=== PATIENT | female | born 1995 | race American Indian/Alaskan Native ===

== ENCOUNTER 2019-05-15 22:11 | Emergency (ER) | payer SELFPAY ==
--- NOTE | 2019-05-15 22:51 | Event Note ---
ED Screening Note Date of service: 05/15/19 Time: 22:48 ED Screening Note: 23 y/o femal LMP 03/04/19. Having vag spotting and pelvic cramping. This initial assessment/diagnostic orders/clinical plan/treatment(s) is/are subject to change based on patients health status, clinical progression and re- assessment by fellow clinical providers in the ED. Further treatment and workup at subsequent clinical providers discretion. Patient/guardian urged not to elope from the ED as their condition may be serious if not clinically assessed and managed. Initial orders include:
[2019-05-15 23:39] LABS: Bacteria,Urine 1+ /HPF (Negative); Bilirubin,Urine NEG (Negative); Blood,Urine MOD (Negative); Color,Urine Straw (Yellow); Protein,Urine <15 mg/dL mg/dL (Negative); Urobilinogen,Urine < 2.0 mg/dL (<2.0)
[2019-05-16 00:02] LABS: Hematocrit 30.9 % (30.3-42.9); Hemoglobin 9.9 gm/dl (10.1-14.3); Mean Corpuscular HGB Conc 32 % (30-34); Mean Corpuscular Volume 77 fl (79-97); Platelet Count 272 K/mm3 (140-440); Red Blood Count 3.99 M/mm3 (3.65-5.03)
[2019-05-16 00:04] LABS: Mean Corpuscular Hemoglobin 25 pg (28-32); Red Cell Distribution Width 23.4 % (13.2-15.2)
--- NOTE | 2019-05-16 01:27 | Ultrasound Report ---
ULTRASOUND OBSTETRIC INDICATION: Abdominal pain with vaginal spotting. Clinical gestational age of 10 weeks, 3 days. TECHNIQUE: Transvaginal. COMPARISON: None available. FINDINGS: GESTATIONAL SAC: Well-defined oval shape and intrauterine in location. YOLK SAC: No significant abnormality. EMBRYO/FETUS: No cardiac activity is detected. - [place]-Rump Length = 0.23 cm = 9 weeks, 0 day(s). ADNEXA: No significant abnormality. FREE FLUID: None. ADDITIONAL FINDINGS: None. IMPRESSION: Single intrauterine with an estimated age of 9 weeks without detectable cardiac activity. Signer Name: Edmundo Tsai MD Signed: 05/16/2019 1:22 AM Workstation Name: [employer]
--- NOTE | 2019-05-16 01:32 | Ultrasound Report ---
Please see the report for accession number [id number] SRM, transvaginal OB ultrasound performed concomit antly. Signer Name: Edmundo Tsai MD Signed: 05/16/2019 1:27 AM Workstation Name: [facility]
--- NOTE | 2019-05-16 03:54 | Emergency Department Report ---
ED Female HPI - General Chief complaint: Urogenital-Female Stated complaint: ABD CRAMPS/BACK PAIN/SPOTTING/PREG Time Seen by Provider: 05/16/19 02:38 Source: patient Mode of arrival: Ambulatory Limitations: No Limitations - History of Present Illness MD Complaint: vaginal bleeding Radiation: non-radiating Severity: mild Quality: cramping Consistency: intermittent Improves with: none Worsens with: none Are you Now?: Yes Associated Symptoms: vaginal bleeding (noticed some spotting). denies: abdominal pain, nausea/vomiting, loss of appetite, dysuria, hematuria - Related Data Sexually active: No Allergies Allergy/AdvReac Type Severity Reaction Status Date / Time No Known Allergies Allergy Unverified 05/15/19 22:49 ED Review of Systems ROS: Stated complaint: ABD CRAMPS/BACK PAIN/SPOTTING/PREG Other details as noted in HPI Comment: All other systems reviewed and negative ED Past Medical Hx - Past Medical History Previous Medical History?: No - Surgical History Past Surgical History?: No - Social History Smoking Status: Never Smoker Substance Use Type: None ED Physical Exam - General Limitations: No Limitations General appearance: alert, in no apparent distress - Head Head exam: Present: atraumatic, normocephalic - Eye Eye exam: Present: normal appearance, PERRL, EOMI. Absent: scleral icterus, conjunctival injection, periorbital swelling Pupils: Present: normal accommodation - ENT ENT exam: Present: normal exam, normal orophraynx, mucous membranes moist, TM's normal bilaterally - Neck Neck exam: Present: normal inspection, full ROM - Respiratory Respiratory exam: Present: normal lung sounds bilaterally. Absent: respiratory distress, wheezes, rales, chest wall tenderness, accessory muscle use - Cardiovascular Cardiovascular Exam: Present: regular rate, normal rhythm. Absent: systolic murmur, diastolic murmur, rubs, gallop - GI/Abdominal GI/Abdominal exam: Present: soft, normal bowel sounds. Absent: distended, tenderness, rebound, rigid, hyperactive bowel sounds, hypoactive bowel sounds, organomegaly, pulsatile mass, hernia - External exam: Present: normal external exam - Extremities Exam Extremities exam: Present: normal inspection - Back Exam Back exam: Present: normal inspection - Neurological Exam Neurological exam: Present: alert, oriented X3 - Psychiatric Psychiatric exam: Present: normal affect, normal mood - Skin Skin exam: Present: warm, dry, intact, normal color. Absent: rash ED Course Vital Signs 05/15/19 22:26 Temperature 98.0 F Pulse Rate 71 Respiratory 18 Rate Blood Pressure 132/85 O2 Sat by Pulse 100 Oximetry ED Medical Decision Making - Lab Data Result diagrams: 05/15/19 23:15 Critical care attestation.: If time is entered above; I have spent that time in minutes in the direct care of this critically ill patient, excluding procedure time. ED Disposition Clinical Impression: Disposition: DC-01 TO HOME OR SELFCARE Condition: Stable Instructions: (ED), Threatened Miscarriage (ED) Additional Instructions: Should follow with the [facility] REPORTING [facility]OC[facility] for reevaluation in one week. Maximum. Currently, her hCG level is 21,962, hemoglobin level IX.1, Rh+. Ultrasound showing 9 weeks, but can't able to detect cardiac Referrals: YUMIKO JOSEINGLEWOOD MD STEPHANIE [Primary Care Provider] - 3-5 Days [facility] [Provider Group] - 3-5 Days
[2019-05-16 04:49] VITALS: BP 111/68
== END 2019-05-16 04:48 | disposition home or self-care (01) ==
LOC: ED 22:11
DX: O20.8 Other hemorrhage in early pregnancy (principal); O26.891 Other specified pregnancy related conditions, first trimester; R10.9 Unspecified abdominal pain; M54.9 Dorsalgia, unspecified; Z3A.09 9 weeks gestation of pregnancy
CPT/HCPCS: 36415; 76801; 76817; 81001; 84702; 85027; 86900; 86901